=== PATIENT | female | born 1990 | race Caucasian/White ===

== ENCOUNTER 2018-12-25 18:52 | Emergency (ER) | payer MEDICAID ==
--- NOTE | 2018-12-25 19:45 | EDPHY ---
H & P Stated Complaint: Fever Time Seen by Provider: 12/25/18 19:38 HPI/ROS: CHIEF COMPLAINT: Sore throat, fever HISTORY OF PRESENT ILLNESS: 28-year-old immunocompetent female complaining of sore throat, fever for the past 24 hr. Denies: Headache, nuchal rigidity, chest pain, dyspnea, abdominal pain, rash, flank pain PRIMARY CARE PROVIDER: Dr. Jordyn Daillo. REVIEW OF SYSTEMS: 10 systems reviewed and negative with the exception of the elements mentioned in the history of present illness PAST MEDICAL & SURGICAL HISTORY: No pertinent medical or surgical history SOCIAL HISTORY: nonsmoker PHYSICAL EXAM (Prior to examination, patient consented to physical exam, hands were washed and my usual and customary physical exam procedures followed) 1) GENERAL: Well-developed, well-nourished, alert and oriented. Appears to be in no acute distress. 2) HEAD: Normocephalic, atraumatic 3) HEENT: Pupils equal, round, reactive to light bilaterally. Sclera anicteric. Nasopharynx, oropharynx, clear, no lesions. Moist Mucous membranes. Bilateral tonsils are symmetrically enlarged with white exudate. Uvula midline. No trismus no drooling. No hot potato voice. Ears bilaterally with normal tympanic membranes. 4) NECK: Full range of motion, no meningeal signs. 5) LUNGS: Clear auscultation bilaterally, no wheezes, no rhonchi, no retractions. 6) HEART: Regular rate and rhythm, no murmur, no heave, no gallop. 7) ABDOMEN: No guarding, no rebound, no focal tenderness, negative McBurney's, negative Pierson's, negative Rovsing's, negative peritoneal sign, negative splenomegaly or left upper quadrant pain 8) MUSCULOSKELETAL: Moving all extremities, no focal areas of tenderness, no obvious trauma. No peripheral edema or discoloration. 9) BACK: No CVA tenderness, no midline vertebral tenderness, no fluctuance, no step-off, no obvious trauma, no visual or palpable abnormality. 10) SKIN: No rash, no petechiae. 11) Psychiatric: Patient is oriented X 3, there is no agitation. DIFFERENTIAL DIAGNOSIS: In no particular order, my differential diagnosis includes, but is not limited to, strep pharyngitis, viral pharyngitis, peritonsillar abscess, retropharyngeal abscess or plegmon, mononucleosis, meningitis, Lemierre syndrome. - Personal History LMP (Females 10-55): IUD In Place Current Tetanus/Diphtheria Vaccine: Unsure - Medical/Surgical History Hx Asthma: No Hx Chronic Respiratory Disease: No Hx Diabetes: No Hx Cardiac Disease: No Hx Renal Disease: No Hx Cirrhosis: No Hx Alcoholism: No Other PMH: Denies - Social History Smoking Status: Never smoked Constitutional: Initial Vital Signs Temperature (C) 37.6 C 12/25/18 18:57 Heart Rate 92 12/25/18 18:57 Respiratory Rate 18 12/25/18 18:57 Blood Pressure 98/65 L 12/25/18 18:57 O2 Sat (%) 95 12/25/18 18:57 O2 Delivery Mode Room Air Allergies/Adverse Reactions: No Known Allergies Allergy (Unverified 12/25/18 19:01) Home Medications: Medication Instructions Recorded Amoxicillin/Clavulanate Pot 875 mg PO BID #14 tab 12/25/18 [Augmentin 875 mg tab] methylPREDNISolone [Medrol Dose 4 mg PO DAILY #1 ea 12/25/18 Edson] Medical Decision Making ED Course/Re-evaluation: Doubt peritonsillar abscess, phlegmon, Lemierre syndrome, , mononucleosis. Positive strep testing with physical exam findings consistent with same. Will initiate antibiotic with Augmentin, Medrol Dose pack. She notes no prior history of adverse reaction to steroids. She feels comfortable being discharged. Patient feels comfortable being discharged. All questions and concerns addressed by myself. Patient given my usual and customary discharge precautions and instructions regarding their clinical impression. Care of patient under supervision of [secondary] supervising physician Dr Lizama - Data Points Laboratory Results: 12/25/18 19:15 Group A Strep Screen POSITIVE H (NEGATIVE) Departure - Departure Disposition: Home, Routine, Self-Care Clinical Impression: Strep pharyngitis Condition: Good Instructions: Strep Throat (ED) Additional Instructions: Return to the ER immediately if you cannot swallow, have drooling, fevers, neck stiffness, cannot open your jaw, or any other symptoms that concern you. Referrals: Jordyn Diallo MD [Primary Care Provider] - 2-3 days, call for appt. Prescriptions: Amoxicillin/Clavulanate Pot [Augmentin 875 mg tab] 875 mg PO BID #14 tab methylPREDNISolone [Medrol Dose Edson] 4 mg PO DAILY #1 ea
[2018-12-25 20:00] VITALS: BP 95/60
== END 2018-12-25 19:59 | disposition home or self-care (01) ==
DX: J02.0 Streptococcal pharyngitis (principal)